=== PATIENT | female | born 1975 | race Caucasian/White ===

== ENCOUNTER 2018-01-12 22:46 | Emergency (ER) | payer MEDICAID ==
[~2018-01-12] VITALS: Ht 154.9 cm; Wt 87.0 kg
[2018-01-12] MEDS ORDERED: TRAMADOL (23:10)
[2018-01-12] MEDS ORDERED: ATORVASTATIN (23:10)
[2018-01-12] MEDS ORDERED: ASPIRIN 81 MG TABLET CHEW ONE (23:19)
[2018-01-12] MEDS ORDERED: ASPIRIN 81 MG TABLET CHEW PO ONE (23:30)
[2018-01-12] MEDS ORDERED: SODIUM CHLORIDE FLUSH 10ML SYR IVF ONE (23:30)
[2018-01-12] MEDS ORDERED: ONDANSETRON ODT 4 MG ONE (23:54)
[2018-01-12 23:55] LABS: BASOPHILS # (AUTO) 0.02 x10^3/uL (0-0.1); BASOPHILS % (AUTO) 0 % (0-1); EOSINOPHILS # (AUTO) 0.15 x10^3/uL (0-0.4); EOSINOPHILS % (AUTO) 2 % (1-7); LYMPHOCYTES # (AUTO) 1.62 x10^3/uL (1-3.4); LYMPHOCYTES % (AUTO) 25 % (22-44); MD NO; MEAN CORPUSCULAR HEMOGLOBIN 28.1 pg (27.0-34.8); MEAN CORPUSCULAR HGB CONC 33.4 g/dL (32.4-35.8); MEAN PLATELET VOLUME 8.5 fL (7.4-10.4); MONOCYTES % (AUTO) 8 % (2-9); NEUTROPHILS # (AUTO) 4.23 x10^3/uL (1.8-6.8); NEUTROPHILS % (AUTO) 65 % (42-75); PLATELET COUNT 185 x10^3/uL (130-400); RED BLOOD COUNT 5.01 x10^6/uL (3.82-5.3); RED CELL DISTRIBUTION WIDTH 13.6 % (9.6-15.2)
[2018-01-12] MEDS ORDERED: MORPHINE SULFATE 4 MG/ML, 1ML ONE (23:55)
[2018-01-13] MEDS ORDERED: MORPHINE SULFATE 4 MG/ML, 1ML IVPush PRN
[2018-01-13] MEDS ORDERED: ONDANSETRON ODT 4 MG PO ONE
[2018-01-13] MEDS ORDERED: ONDANSETRON 2MG/ML, 2ML IVPush ONE
[2018-01-13 00:03] LABS: ALBUMIN 3.5 g/dL (3.4-5.0); ANION GAP 5 mmol/L (5-15); CALCIUM 8.5 mg/dL (8.5-10.1); CHLORIDE 112 mmol/L (98-107)
[2018-01-13 00:09] LABS: ALANINE AMINOTRANSFERASE 19 U/L (12-78); ALKALINE PHOSPHATASE 51 U/L (45-117); BILIRUBIN,TOTAL 0.4 mg/dL (0.2-1.0); CREATININE 0.71 mg/dL (0.55-1.02); TOTAL PROTEIN 6.7 g/dL (6.4-8.2); TROPONIN I < 0.015 ng/mL (0.000-0.045)
[2018-01-13 00:18] VITALS: BP 132/78
== END 2018-01-13 00:43 | disposition home or self-care (01) ==
LOC: ED 23:59
DX: R07.89 Other chest pain (principal); E78.5 Hyperlipidemia, unspecified
CPT/HCPCS: 36415; 71046; 80053; 83735; 84484; 85025; 93005; 96374; 99285; Q0162

== ENCOUNTER 2018-10-04 20:15 | Emergency (ER) | payer MEDICAID ==
[~2018-10-04] VITALS: Ht 157.5 cm; Wt 92.0 kg
[~2018-10-04 20:15] MED LIST: ATOR-2 PO; ATORVASTATIN; TRAMADOL; TRAZ-137 PO
[2018-10-04 20:23] VITALS: BP 141/84
--- NOTE | 2018-10-04 20:39 | NUR ---
RIGHT EAR PAIN OFF AND ON FOR 3 WEEKS
== END 2018-10-04 20:50 | disposition home or self-care (01) ==
LOC: ED 20:44
DX: H60.11 Cellulitis of right external ear (principal); H65.01 Acute serous otitis media, right ear; H60.501 Unspecified acute noninfective otitis externa, right ear
CPT/HCPCS: 99283

== ENCOUNTER 2019-05-27 09:48 | Emergency (ER) | payer MEDICAID, OTHER ==
[~2019-05-27] VITALS: Ht 154.9 cm; Wt 74.3 kg
--- NOTE | 2019-05-27 09:55 | NUR ---
PT AMBULATORY WITH STEADY GAIT WITH TECH TO RESTROOM FOR URINE SAMPLE.
--- NOTE | 2019-05-27 10:04 | NUR ---
PT HERE WITH C/O LEFT SIDED FLANK PAIN THAT STARTED THIS AM. PER PT, SHE HAD "BLADDER PAIN AND PRESSURE THAT STARTED YESTERDAY AND NOW IT'S IN MY BACK." PT STATES SHE TOOK A DOSE OF TYLENOL AT 0830 WITH NO RELIEF. PT AAO X 4, NAD, ROOM AIR, DRESSED IN GOWN AND ATTACHED TO MONITOR. CALL LIGHT WITHIN REACH, SIDERAIL X [address], FAMILY AT BEDSIDE. UA LABELLED AND WALKED TO LAB.
--- NOTE | 2019-05-27 10:08 | NUR ---
MD AT BEDSIDE FOR EXAM, PLAN FOR BLADDER SCAN.
--- NOTE | 2019-05-27 10:16 | NUR ---
BLADDER SCAN RESULTS: 36ML, THIS RN TO NOTIFY .
[2019-05-27] MEDS ORDERED: IBUPROFEN 600 MG TABLET ONE (10:17)
[2019-05-27] MEDS ORDERED: PHENAZOPYRIDINE 200 MG TABLET ONE (10:17)
--- NOTE | 2019-05-27 10:21 | NUR ---
PT MEDICATED PER ORDERS.
[2019-05-27] MEDS ORDERED: IBUPROFEN 600 MG TABLET PO ONE (10:30)
[2019-05-27] MEDS ORDERED: PHENAZOPYRIDINE 200 MG TABLET PO ONE (10:30)
[2019-05-27 10:41] LABS: MICROSCOPIC INDICATED
--- NOTE | 2019-05-27 10:41 | NUR ---
PT AMBULATORY TO RESTROOM WITH STEADY GAIT AND NO STAFF ASSISTANCE.
--- NOTE | 2019-05-27 10:50 | NUR ---
AT BEDSIDE FOR REASSESSMENT.
--- NOTE | 2019-05-27 10:56 | NUR ---
PIV ESTABLISHED BY THIS RN AND LABS DRAWN.
[2019-05-27] MEDS ORDERED: MORPHINE SULFATE 4 MG/ML, 1ML ONE (10:57)
[2019-05-27] MEDS ORDERED: MORPHINE SULFATE 4 MG/ML, 1ML IVPush PRN (11:00)
--- NOTE | 2019-05-27 11:05 | NUR ---
PT MEDICATED PER ORDERS.
[2019-05-27 11:15] LABS: CULTURE INDICATED? NO
--- NOTE | 2019-05-27 11:16 | NUR ---
PT TO CT.
[2019-05-27 11:22] LABS: BASOPHILS # (AUTO) 0.01 x10^3/uL (0-0.1); BASOPHILS % (AUTO) 0 % (0-1); EOSINOPHILS # (AUTO) 0.06 x10^3/uL (0-0.4); EOSINOPHILS % (AUTO) 1 % (1-7); LYMPHOCYTES # (AUTO) 0.75 x10^3/uL (1-3.4); LYMPHOCYTES % (AUTO) 15 % (22-44); MD NO; MEAN CORPUSCULAR HEMOGLOBIN 28.7 pg (27.0-34.8); MEAN CORPUSCULAR HGB CONC 33.4 g/dL (32.4-35.8); MEAN CORPUSCULAR VOLUME 86.1 fL (80-100); MEAN PLATELET VOLUME 8.8 fL (7.4-10.4); MONOCYTES # (AUTO) 0.37 x10^3/uL (0.2-0.8); MONOCYTES % (AUTO) 7 % (2-9); NEUTROPHILS # (AUTO) 3.94 x10^3/uL (1.8-6.8); NEUTROPHILS % (AUTO) 77 % (42-75); PLATELET COUNT 167 x10^3/uL (130-400); RED BLOOD COUNT 4.65 x10^6/uL (3.82-5.3); RED CELL DISTRIBUTION WIDTH 13.3 % (9.6-15.2)
--- NOTE | 2019-05-27 11:26 | NUR ---
PT BACK FROM CT.
[2019-05-27 11:37] VITALS: BP 114/86
--- NOTE | 2019-05-27 11:58 | NUR ---
AT BEDSIDE FOR REASSESSMENT.
--- NOTE | 2019-05-27 12:37 | NUR ---
Patient/Caregiver given discharge instructions and they have confirmed that they understand the instructions. Patient ambulatory with steady gait. PIV REMOVED BY THIS RN WITH TIP INTACT.
[2019-05-27 13:09] LABS: ANION GAP 9 mmol/L (5-15); CALCIUM 8.1 mg/dL (8.5-10.1); CHLORIDE 115 mmol/L (98-107); CREATININE 0.71 mg/dL (0.55-1.02)
== END 2019-05-27 12:53 | disposition home or self-care (01) ==
LOC: ED 12:20
DX: N13.2 Hydronephrosis with renal and ureteral calculous obstruction (principal); R31.9 Hematuria, unspecified; E78.5 Hyperlipidemia, unspecified
CPT/HCPCS: 36415; 74176; 80048; 81001; 83880; 85025; 96374; 99284; J2270

== ENCOUNTER 2019-07-28 10:14 | Emergency (ER) | payer SELFPAY ==
[~2019-07-28] VITALS: Ht 154.9 cm; Wt 73.0 kg
[~2019-07-28 10:14] MED LIST changes: -TRAZ-137 PO; +TRAZ-175 PO
[2019-07-28 11:00] VITALS: BP 157/80
[2019-07-28 11:32] LABS: RAPID INFLUENZA A Negative (Negative); RAPID INFLUENZA B Negative (Negative)
[2019-07-28] MEDS ORDERED: IBUPROFEN 200 MG TABLET ONE (11:54)
[2019-07-28] MEDS ORDERED: IBUPROFEN 200 MG TABLET PO ONE (12:00)
== END 2019-07-28 13:22 | disposition home or self-care (01) ==
LOC: ED 13:16
DX: J18.9 Pneumonia, unspecified organism (principal); E78.5 Hyperlipidemia, unspecified; J45.909 Unspecified asthma, uncomplicated; Z90.49 Acquired absence of other specified parts of digestive tract
CPT/HCPCS: 71046; 87400; 99284

== ENCOUNTER 2019-11-20 22:00 | Observation (INO) | payer OTHER ==
[~2019-11-20] VITALS: Ht 154.9 cm; Wt 74.9 kg
[2019-11-21] MEDS ORDERED: ASPIRIN 81 MG TABLET CHEW PO ONE
--- NOTE | 2019-11-21 | NUR ---
Pt recently in hospital room w/ and had positive covid test. States cp and intermittent sob as well as chills and generalized malaisex3 days. Pt states seeing a cardiolist "for awhile... i dont remember why, something about upside down t waves or something." All monitoring in place. Call light within reach.
[2019-11-21] MEDS ORDERED: NITROGLYCERIN OINT 2%, 1GM TP ONE ×2 (00:03)
[2019-11-21] MEDS ORDERED: ASPIRIN 81 MG TABLET CHEW ONE (00:03)
[2019-11-21 00:25] LABS: BASOPHILS # (AUTO) 0.02 x10^3/uL (0-0.1); BASOPHILS % (AUTO) 0 % (0-1); EOSINOPHILS # (AUTO) 0.17 x10^3/uL (0-0.4); EOSINOPHILS % (AUTO) 2 % (1-7); LYMPHOCYTES # (AUTO) 1.43 x10^3/uL (1-3.4); LYMPHOCYTES % (AUTO) 20 % (22-44); MD NO; MEAN CORPUSCULAR HEMOGLOBIN 28.3 pg (27.0-34.8); MEAN CORPUSCULAR HGB CONC 33.3 g/dL (32.4-35.8); MEAN PLATELET VOLUME 9.2 fL (7.4-10.4); MONOCYTES # (AUTO) 0.55 x10^3/uL (0.2-0.8); MONOCYTES % (AUTO) 8 % (2-9); NEUTROPHILS # (AUTO) 4.95 x10^3/uL (1.8-6.8); NEUTROPHILS % (AUTO) 69 % (42-75); PLATELET COUNT 168 x10^3/uL (130-400); RED BLOOD COUNT 5.08 x10^6/uL (3.82-5.3); RED CELL DISTRIBUTION WIDTH 12.6 % (9.6-15.2)
[2019-11-21 00:34] LABS: ALANINE AMINOTRANSFERASE 33 U/L (12-78); ALBUMIN 3.5 g/dL (3.4-5.0); CALCIUM 8.3 mg/dL (8.5-10.1); CREATININE 0.59 mg/dL (0.55-1.02)
[2019-11-21 00:39] LABS: ALKALINE PHOSPHATASE 90 U/L (45-117); BILIRUBIN,TOTAL 0.4 mg/dL (0.2-1.0); TOTAL PROTEIN 6.6 g/dL (6.4-8.2); TROPONIN I < 0.015 ng/mL (0.000-0.045)
[2019-11-21 00:41] LABS: ANION GAP 3 mmol/L (5-15); CHLORIDE 115 mmol/L (98-107)
[2019-11-21] MEDS ORDERED: morphine SULFATE 10 MG/ML, 1ML IVPush PRN (01:30)
[2019-11-21] MEDS ORDERED: hydrALAzine 20 MG/ML, 1ML IVPush PRN (01:30)
[2019-11-21] MEDS ORDERED: ONDANSETRON 2MG/ML, 2ML IVPush PRN (01:30)
--- NOTE | 2019-11-21 02:18 | NUR ---
Pt resting comfortably, watching tv. NADN. SYLVESTER. VSS.
--- NOTE | 2019-11-21 02:33 | NUR ---
PT tx to hospital bed for comfort. Lights dimmed and watching tv.
--- NOTE | 2019-11-21 03:03 | NUR ---
Pt sleeping comfortably on hospital bed. NADN. SYLVESTER.
--- NOTE | 2019-11-21 05:02 | NUR ---
Pt sleeping comfortably on hospital bed. NADN. SYLVESTER.
--- NOTE | 2019-11-21 05:37 | NUR ---
Pt sleeping comfortably on hospital bed. NADN. SYLVESTER.
[2019-11-21 07:24] VITALS: BP 149/86
[2019-11-21 07:40] VITALS: BP 149/86
[2019-11-21 09:49] LABS: CHOLESTEROL, TOTAL 163 mg/dL (140-239)
[2019-11-21 09:53] LABS: CHOL/HDL RATIO 3.1; HDL CHOL % 32 % (28-40); HDL CHOLESTEROL (DIRECT) 52 mg/dL (40-60); LDL CHOLESTEROL,CALCULATED 91 mg/dL (54-169); LDL/HDL RATIO 1.8 (0.5-3.0); TRIGLYCERIDES 99 mg/dL (50-200); TROPONIN I < 0.015 ng/mL (0.000-0.045); VLDL CHOLESTEROL 20 mg/dL (0-25)
[2019-11-21] MEDS ORDERED: ACETAMINOPHEN 325 MG TABLET ONE (09:54)
[2019-11-21] MEDS: ACETAMINOPHEN 325 MG TABLET PO PRN ×2 (09:55→17:21)
[2019-11-21] MEDS ORDERED: POTASSIUM CHLORIDE 20 MEQ TAB.ER.PRT PO ONE (11:00)
[2019-11-21 13:36] VITALS: BP 138/83
[2019-11-21] MEDS ORDERED: AMOX1TAB64 PO (16:28)
[2019-11-21] MEDS ORDERED: GUAI5LIQ11 PO (16:28)
[2019-11-21 17:43] VITALS: BP 148/91
[2019-11-21 18:54] VITALS: BP 156/89
[2019-11-22 00:19] VITALS: BP 132/76
[2019-11-22 05:19] LABS: BASOPHILS # (AUTO) 0.03 x10^3/uL (0-0.1); BASOPHILS % (AUTO) 1 % (0-1); EOSINOPHILS # (AUTO) 0.12 x10^3/uL (0-0.4); EOSINOPHILS % (AUTO) 3 % (1-7); LYMPHOCYTES # (AUTO) 1.54 x10^3/uL (1-3.4); LYMPHOCYTES % (AUTO) 34 % (22-44); MD NO; MEAN CORPUSCULAR HEMOGLOBIN 28.2 pg (27.0-34.8); MEAN CORPUSCULAR HGB CONC 32.9 g/dL (32.4-35.8); MEAN CORPUSCULAR VOLUME 85.7 fL (80-100); MEAN PLATELET VOLUME 9.3 fL (7.4-10.4); MONOCYTES # (AUTO) 0.44 x10^3/uL (0.2-0.8); MONOCYTES % (AUTO) 10 % (2-9); NEUTROPHILS # (AUTO) 2.36 x10^3/uL (1.8-6.8); NEUTROPHILS % (AUTO) 53 % (42-75); PLATELET COUNT 153 x10^3/uL (130-400); RED BLOOD COUNT 4.94 x10^6/uL (3.82-5.3)
[2019-11-22 05:25] LABS: ANION GAP 4 mmol/L (5-15); CALCIUM 8.9 mg/dL (8.5-10.1); CHLORIDE 111 mmol/L (98-107)
[2019-11-22 08:17] VITALS: BP 146/87
[2019-11-22] MEDS ORDERED: POTASSIUM CHLORIDE 20 MEQ TAB.ER.PRT PO ONE (09:00)
== END 2019-11-22 12:10 | disposition home or self-care (01) ==
LOC: ED 11-21 00:47 → INTOOBSV 11-21 01:09 → EDIP 11-21 01:09 → 4NW 11-21 07:15
PROVIDERS: ADMIT Internal Medicine; ATTEND Internal Medicine
DX: R07.89 Other chest pain (principal); Z20.828 Contact with and (suspected) exposure to other viral communicable diseases; E11.9 Type 2 diabetes mellitus without complications; R05 Cough; J02.9 Acute pharyngitis, unspecified; I16.0 Hypertensive urgency; I42.9 Cardiomyopathy, unspecified; E87.6 Hypokalemia; E78.5 Hyperlipidemia, unspecified; R06.02 Shortness of breath; J45.909 Unspecified asthma, uncomplicated; Z98.84 Bariatric surgery status; Z90.710 Acquired absence of both cervix and uterus; Z72.89 Other problems related to lifestyle; Z79.899 Other long term (current) drug therapy; Z87.442 Personal history of urinary calculi; Z86.73 Personal history of transient ischemic attack (TIA), and cerebral infarction without residual deficits
CPT/HCPCS: 36415; 71045; 71275; 80048; 80053; 80061; 83036; 83735; 83880; 84443; 84484; 85025; 85379; 87081; 87635; 87880; 93005; 93308; 93321; 93325; 99285; G0378